=== PATIENT | male | born 1985 | race Two or more races ===

== ENCOUNTER 2022-08-25 09:06 | Emergency (ER) | payer SELFPAY ==
[~2022-08-25] VITALS: Ht 188 cm; Wt 77.1 kg
--- NOTE | 2022-08-25 09:10 | NUR ---
RECEIVED PT37 YRS MALE CAME FROM HOME C/O PARVIZ TESICULE PAIN 10/10 FOR 2 DAY NO HX TRAUMA
--- NOTE | 2022-08-25 09:15 | NUR ---
BLOOD DROW AND SENT T LAB
[2022-08-25] MEDS ORDERED: KETOROLAC TROMETHAMINE INJ 30 MG/ML VIAL ONE (09:29)
[2022-08-25] MEDS ORDERED: KETOROLAC TROMETHAMINE INJ 30 MG/ML VIAL IV ONE (09:30)
[2022-08-25] MEDS ORDERED: IV NS 0.9% 1,000 ML BAG IV ONE (09:30)
--- NOTE | 2022-08-25 09:35 | NUR ---
ULTRASOUND AT BEDSIDE
[2022-08-25 09:40] LABS: BASOPHILS # (AUTO) 0.1 K/uL (0.0-0.2); BASOPHILS % (AUTO) 0.5 % (0.0-2.0); HEMATOCRIT 44 % (39-51); HEMOGLOBIN 14.6 g/dL (13.5-17.5); LYMPHOCYTES # (AUTO) 2.7 K/uL (0.8-4.8); LYMPHOCYTES % (AUTO) 24.7 % (20.0-44.0); MEAN CORPUSCULAR HGB CONC 33 g/dl (31.0-36.0); MEAN CORPUSCULAR VOLUME 87 fL (80-96); MONOCYTES # (AUTO) 0.8 K/uL (0.1-1.30); NEUTROPHILS # (AUTO) 7.2 K/uL (1.8-8.9); NEUTROPHILS % (AUTO) 66.8 % (43.0-81.0); PLATELET COUNT (AUTO) 197 K/uL (150-450); RED BLOOD CELL COUNT(AUTO) 5.09 MIL/uL (4.5-6.0); WHITE BLOOD COUNT (AUTO) 10.8 K/uL (4.3-11.0)
--- NOTE | 2022-08-25 09:43 | NUR ---
SCROTUM US AT BED SIDE
--- NOTE | 2022-08-25 10:04 | NUR ---
TO CT SCAN ABDOMIN
[2022-08-25 10:29] LABS: ALBUMIN 4.5 g/dL (3.4-5.0); BILIRUBIN,DIRECT 0.1 mg/dL (0.0-0.2); BILIRUBIN,TOTAL 0.4 mg/dL (0.2-1.0); CALCIUM, SERUM 9.8 mg/dL (8.5-10.1); CREATININE 1.1 mg/dL (0.6-1.3); POTASSIUM 3.7 mmol/L (3.5-5.1); TOTAL PROTEIN, SERUM 8.3 g/dL (6.4-8.2)
[2022-08-25] MEDS ORDERED: TAMSULOSIN 0.4 MG CAP.SR.24H PO ONE (10:30)
--- NOTE | 2022-08-25 10:35 | NUR ---
UA SENT TO LAB
[2022-08-25] MEDS ORDERED: TAMS-12 PO (10:42)
--- NOTE | 2022-08-25 11:00 | NUR ---
pain in releaved
--- NOTE | 2022-08-25 11:10 | NUR ---
IV removed. Catheter intact and site benign. Pressure and 4x4 applied to site. No bleeding noted.
--- NOTE | 2022-08-25 11:13 | NUR ---
Patient discharged to home in stable condition. Written and verbal after care instructions given. Patient verbalizes understanding of instruction.
[2022-08-25] MEDS ORDERED: TAMSULOSIN 0.4 MG CAP.SR.24H ONE (11:24)
[2022-08-25 11:27] LABS: BILIRUBIN,URINE 1+ (NEGATIVE); COLOR,URINE YELLOW (YELLOW); LEUKOCYTE ESTERASE ,URINE TRACE (NEGATIVE); NITRITE, URINE POSITIVE (NEGATIVE); PH,URINE 8.5 (5.0-8.0); PROTEIN,URINE 1+ mg/dl (NEGATIVE); UGLUCOSE NEGATIVE (NEGATIVE); UROBILINOGEN,URINE 0.2 EU/dL (0.2)
[2022-08-25 11:32] VITALS: BP 107/62
[2022-08-25 12:18] LABS: BACTERIA,URINE 3+ /HPF (None Seen); RBC,URINE 21-50 /HPF (0-2)
[2022-08-25 12:19] LABS: SQUAMOUS EPITHELIAL CELL,UR Few /HPF (None Seen); URINE AMORPHOUS PHOSPHATES FEW /HPF (None Seen)
== END 2022-08-25 11:33 | disposition home or self-care (01) ==
LOC: ER 09:08
DX: N20.0 Calculus of kidney (principal)
CPT/HCPCS: 99285; 74176; 96374; 96361; 76870; 85025; 80048; 87086; 83690; 80076; 81001; 36415; J1885; J7030